=== PATIENT | female | born 2000 | race Caucasian/White ===

== ENCOUNTER 2020-06-08 22:30 | Emergency (ER) | payer SELFPAY ==
[~2020-06-08] VITALS: Ht 154.9 cm; Wt 49.9 kg
[2020-06-08 22:34] VITALS: Ht 154.9 cm; Wt 49.9 kg
[2020-06-09 01:56] VITALS: BP 134/87
== END 2020-06-09 01:56 | disposition home or self-care (01) ==
LOC: ED 22:30
DX: S06.0X0A Concussion without loss of consciousness, initial encounter (principal); W01.0XXA Fall on same level from slipping, tripping and stumbling without subsequent striking against object, initial encounter; Y93.89 Activity, other specified; Y92.89 Other specified places as the place of occurrence of the external cause; Y99.8 Other external cause status